=== PATIENT | female | born 1950 | race Caucasian/White ===

== ENCOUNTER → 2023-03-18 08:44 | Outpatient (BNVA) | payer MEDICARE, BC, SELFPAY | PROVIDERS: PCP Nurse Practitioner; Visit Provider Internal Medicine | DX: R53.83 Other fatigue (principal); R63.4 Abnormal weight loss; E07.9 Disorder of thyroid, unspecified; G62.9 Polyneuropathy, unspecified; Z80.8 Family history of malignant neoplasm of other organs or systems; Z87.440 Personal history of urinary (tract) infections | CPT/HCPCS: 99204 ==

== ENCOUNTER 2023-03-29 13:59 | Outpatient (CLI) | payer MEDICARE, BC, SELFPAY ==
[2023-03-29 15:03] LABS: Thyroid Stimulating Hormone 1.69 uIU/mL (0.27-4.20); Vitamin B12 1512 pg/mL (232-1245)
--- NOTE | 2023-03-29 15:15 | US_ITS ---
WS: [id number] THYROID ULTRASOUND HISTORY: Thyroid Dysfunction COMPARISON: None available. Right lobe: 1.4 cm x 1.6 cm x 4.6 cm (w x ap x l). Volume: 5.4 cm3. Normal sized thyroid. There is a hypoechoic mass with tiny cysts and a few small echogenic foci withi n the mid thyroid. Mass measures 0.9 x 1.1 x 1.5 cm. There is increased vascularity. There are additi onal similar nodules which are smaller throughout the thyroid. Left lobe: 1.1 cm x 1.4 cm x 4.3 cm (w x ap x l). Volume: 3.3 cm3. Multiple small masses are noted within the LEFT thyroid. The largest is in the mid thyroid measuring 1.0 x 0.6 x 0.7 cm. No increased vascularity. Isthmus: 0.2 cm. IMPRESSION: 1. TI-RADS 3 nodule RIGHT thyroid. Follow-up ultrasound in 1 year. 2. Smaller less concerning nodules LEFT thyroid. These also could be reevaluated in 1 year.
[2023-03-29 16:07] LABS: Cortisol Random 9.25 ug/dL (2.47-19.5); Free T4 Free Thyroxine 0.89 ng/dL (0.82-1.77)
[2023-04-01 06:53] LABS: Thyroglobulin AB <1 IU/mL (< or = 1)
[2023-04-01 11:58] LABS: Thyroid Peroxidase Antobodies <1 IU/mL (<9)
== END 2023-03-29 14:00 | disposition home or self-care (01) ==
PROVIDERS: PCP Nurse Practitioner; Visit Provider Internal Medicine
DX: E07.9 Disorder of thyroid, unspecified (principal); R53.83 Other fatigue; R63.4 Abnormal weight loss; E04.2 Nontoxic multinodular goiter
CPT/HCPCS: 36415; 76536; 82533; 82607; 84439; 84443; 86376; 86800

== ENCOUNTER → 2023-11-16 09:56 | Outpatient (BNVA) | payer MEDICARE, BC, SELFPAY | PROVIDERS: PCP Nurse Practitioner; Visit Provider Internal Medicine | DX: R53.83 Other fatigue (principal); R63.4 Abnormal weight loss; G62.9 Polyneuropathy, unspecified; Z80.8 Family history of malignant neoplasm of other organs or systems; E67.8 Other specified hyperalimentation; E04.2 Nontoxic multinodular goiter; U09.9 Post COVID-19 condition, unspecified; Z68.23 Body mass index [BMI] 23.0-23.9, adult | CPT/HCPCS: 82607; 99214 ==

== ENCOUNTER → 2024-03-29 10:03 | Outpatient (BNVA) | payer MEDICARE, BC, SELFPAY | PROVIDERS: PCP Nurse Practitioner; Visit Provider Internal Medicine | DX: Z80.8 Family history of malignant neoplasm of other organs or systems (principal); E04.2 Nontoxic multinodular goiter; Z09 Encounter for follow-up examination after completed treatment for conditions other than malignant neoplasm; R53.83 Other fatigue; R63.4 Abnormal weight loss; G62.9 Polyneuropathy, unspecified; E67.8 Other specified hyperalimentation; U09.9 Post COVID-19 condition, unspecified; Z68.24 Body mass index [BMI] 24.0-24.9, adult | CPT/HCPCS: 36415; 82607; 83516; 84439; 84443; 84480; 99214 ==

== ENCOUNTER → 2025-03-12 12:06 | Outpatient (BNVA) | payer MEDICARE, BC, SELFPAY | PROVIDERS: PCP Nurse Practitioner; Visit Provider Internal Medicine | DX: E07.9 Disorder of thyroid, unspecified (principal) | CPT/HCPCS: 36415; 84439; 84443 ==